=== PATIENT | female | born 1950 | race Caucasian/White ===

== ENCOUNTER → 2018-11-20 | Outpatient (CLI) | payer MEDICARE | END | disposition home or self-care (01) | LOC: RAH 10:46 | PROVIDERS: ATTEND Physical Medicine & Rehabilitation | DX: R27.8 Other lack of coordination (principal) | CPT/HCPCS: 70551 ==

== ENCOUNTER → 2019-07-19 | Outpatient (CLI) | payer MEDICARE | END | disposition home or self-care (01) | LOC: RAH 09:57 | PROVIDERS: ATTEND Physical Medicine & Rehabilitation | DX: M48.061 Spinal stenosis, lumbar region without neurogenic claudication (principal); M41.86 Other forms of scoliosis, lumbar region | CPT/HCPCS: 72148 ==

== ENCOUNTER → 2019-11-27 | Outpatient (CLI) | payer OTHER | END | disposition home or self-care (01) | LOC: RAH 13:59 | PROVIDERS: ATTEND Nurse Practitioner Adult Health | DX: Z13.6 Encounter for screening for cardiovascular disorders (principal) | CPT/HCPCS: 75571 ==

== ENCOUNTER → 2019-12-13 | Outpatient (CLI) | payer MEDICARE, OTHER | END | disposition home or self-care (01) | LOC: SHCH 15:46 | PROVIDERS: ATTEND Internal Medicine Cardiovascular Disease | DX: R00.2 Palpitations (principal) | CPT/HCPCS: 93306; 93356 ==

== ENCOUNTER → 2023-09-20 | Outpatient (CLI) | payer MEDICARE, OTHER ==
[~2023-09-20] MED LIST: AMOX-426 PO; ASPI-1197 PO; BACI1TAB24 PO; BUSP15TA3 PO; CETI10TA57 PO; FLUO20CA30 PO; LANS15TA5 PO; ONDA-104 PO; RALO60 PO; TRAZ-185 PO; ZOLE5INF IV
== END | disposition home or self-care (01) ==
LOC: RAH 13:01
PROVIDERS: ATTEND Nurse Practitioner Adult Health
DX: M81.0 Age-related osteoporosis without current pathological fracture (principal)
CPT/HCPCS: 77080

== ENCOUNTER 2024-04-17 15:19 | Emergency (ER) | payer MEDICARE, OTHER ==
[~2024-04-17] VITALS: Ht 162.6 cm; Wt 63.5 kg
[2024-04-17 16:07] LABS: BASOPHILS # (AUTO) 0.01 K/uL (0.00-0.20); BASOPHILS % (AUTO) 0.1 % (0.0-5.0); EOSINOPHILS # (AUTO) 0.01 K/uL (0.00-0.70); EOSINOPHILS % (AUTO) 0.1 % (0.0-8.0); HEMATOCRIT 38.7 % (36-48); IMMATURE GRANULOCYTE ABSOLUTE 0.02 K/uL (0-1); LYMPHOCYTES # (AUTO) 1.6 K/uL (1.0-4.8); LYMPHOCYTES % (AUTO) 18.7 % (21.0-51.0); MEAN CORPUSCULAR HEMOGLOBIN 29.5 pg (27.0-33.0); MEAN CORPUSCULAR HGB CONC 33.6 g/dL (32.0-36.0); MEAN CORPUSCULAR VOLUME 87.8 fL (79-99); MONOCYTES # (AUTO) 0.2 K/uL (0.1-1.0); MONOCYTES % (AUTO) 2.5 % (3.0-13.0); NEUTROPHILS # (AUTO) 6.8 K/uL (1.8-7.7); NEUTROPHILS % (AUTO) 78.4 % (40.0-77.0); PLATELET COUNT (AUTO) 280 K/uL (130-400); RED BLOOD CELL COUNT(AUTO) 4.41 MIL/uL (4.00-5.50); RED CELL DISTRIBUTION WIDTH 12.3 % (11.0-15.5); WHITE BLOOD COUNT (AUTO) 8.7 K/uL (4.8-10.8)
[2024-04-17 16:14] LABS: CREATININE 0.7 mg/dL (0.5-1.0); POTASSIUM 3.3 mmol/L (3.5-5.1)
[2024-04-17 16:18] LABS: ALBUMIN 3.6 g/dL (3.5-5.0); BILIRUBIN,TOTAL 0.5 mg/dL (0.2-1.0)
[2024-04-17] MEDS ORDERED: IOHEXOL-350 75 ML VIAL IV ONE (18:00)
[2024-04-17] MEDS: ONDANSETRON 4MG INJ IVP ONE (18:12)
[2024-04-17] MEDS: MORPHINE 2 MG SYG IVP ONE (18:12)
[2024-04-17] MEDS: 0.9%NACL 1000ML 1,000 ML IV ONE (18:12)
[2024-04-17 19:32] LABS: APPEARANCE,URINE CLEAR (CLEAR); BILIRUBIN,URINE NEGATIVE (NEGATIVE); COLOR,URINE LIGHT-YELLOW (YELLOW); GLUCOSE, URINE (UA) NEGATIVE (NEGATIVE); KETONES,URINE NEGATIVE (NEGATIVE); LEUKOCYTE ESTERASE ,URINE NEGATIVE Leu/uL (NEGATIVE); NITRATE,URINE NEGATIVE (NEGATIVE); OCCULT BLOOD,URINE NEGATIVE (NEGATIVE); PH,URINE 8.5 (5.0-8.0); PROTEIN,URINE NEGATIVE (NEGATIVE); UROBILINOGEN,URINE 0.2 mg/dL (0.2-1.0)
[2024-04-17] MEDS: POTASSIUM BICARB/CIT AC 25 MEQ TABLET.EFF PO ONE (19:40)
[2024-04-17 19:48] VITALS: BP 124/61; PULSE 75; RESP 18; O2SAT 99
[2024-04-17] MEDS ORDERED: ONDA-243 PO (19:50)
[2024-04-17] MEDS ORDERED: DICY20TA2 PO (19:50)
[2024-04-17 19:54] LABS: ADD UA MICROSCOPIC YES
[2024-04-17 19:56] LABS: WBC,URINE 0-1 /HPF (0-1)
== END 2024-04-17 20:45 | disposition home or self-care (01) ==
LOC: EDH 15:19
DX: A08.4 Viral intestinal infection, unspecified (principal); R19.7 Diarrhea, unspecified; R10.9 Unspecified abdominal pain; R42 Dizziness and giddiness; E86.0 Dehydration; Z90.710 Acquired absence of both cervix and uterus
CPT/HCPCS: 99285; 74177; 96374; 96361; 96375; 84484; 80053; 83690 ×2; 85025; 81001; 36415; 93005; J2270; J7030; J2405; Q9967

== ENCOUNTER → 2025-03-20 | Outpatient (CLI) | payer MEDICARE, OTHER ==
[~2025-03-20] MED LIST changes: +DICY20TA2 PO; +ONDA-243 PO
--- NOTE | 2025-03-20 16:58 | HMCIMG ---
Lumbar spine 2 views Comparison Study: none History: Low back pain, unspecified Findings: Exam of the lumbosacral spine demonstrates no evidence of fracture or subluxation. There are moderate spondylitic changes. The facet joints show moderate degenerative changes. There is levoscoliosis of the lumbar spine. The disc spaces are intact. Bone mineralization is normal. Impression: Spondylitic changes and degenerative changes of the apophyseal joints as noted.
== END | disposition home or self-care (01) ==
LOC: RAH 15:08
PROVIDERS: ATTEND Nurse Practitioner Adult Health
DX: M47.816 Spondylosis without myelopathy or radiculopathy, lumbar region (principal); M41.86 Other forms of scoliosis, lumbar region; M54.50 Low back pain, unspecified
CPT/HCPCS: 72100

== ENCOUNTER 2025-09-24 15:55 | Emergency (ER) | payer MEDICARE, OTHER ==
[~2025-09-24] VITALS: Ht 162.6 cm; Wt 65.8 kg
[~2025-09-24 15:55] MED LIST changes: -FLUO20CA30 PO; +FLUO20CA95 PO
--- NOTE | 2025-09-24 17:36 | NUR ---
PT BEDDED IN HALLWAY B ASSUMED CARE AT THIS TIME
--- NOTE | 2025-09-24 17:40 | HMCIMG ---
STUDY CR right knee, 3 view. HISTORY Fall. TECHNIQUE Three radiographic views of the right knee. COMPARISON None provided. FINDINGS BONES No acute fracture or aggressive osseous lesion is identified. JOINTS There is mild tricompartmental osteoarthritis of the right knee, with minimal joint space narrowing and small marginal osteophytes. No sizable joint effusion is appreciated. SOFT TISSUES The periarticular soft tissues are unremarkable. IMPRESSION * Mild tricompartmental osteoarthritis of the right knee. * No acute osseous abnormality. /[place]
--- NOTE | 2025-09-24 17:40 | HMCIMG ---
STUDY CT head without intravenous contrast. HISTORY Fall with laceration. TECHNIQUE Axial CT images of the head/brain were obtained without intravenous contrast. COMPARISON MR brain with and without contrast dated 11/20/2018 at 11:09. CT head without contrast dated 05/19/2015 at 08:53. FINDINGS BRAIN There is diffuse cerebral volume loss with prominence of the ventricles and cortical sulci, compatible with chronic atrophy. Chronic small vessel ischemic changes are present in the bilateral frontoparietal white matter. No acute intracranial hemorrhage, mass lesion, CT evidence of acute territorial infarct, midline shift, or extra-axial fluid collection is identified. VENTRICLES AND CSF SPACES The ventricles and basal cisterns are normal in configuration for the degree of cerebral volume loss, without hydrocephalus. ORBITS The visualized orbits are unremarkable. PARANASAL SINUSES AND MASTOIDS There is mucosal thickening with partial opacification of the right maxillary sinus, compatible with right maxillary sinusitis; no definite air-fluid level is identified on this nonsinus-dedicated head CT. The remaining paranasal sinuses and mastoid air cells are clear. BONES AND SOFT TISSUES No calvarial fracture is seen. The visualized scalp and facial soft tissues are unremarkable. IMPRESSION * Chronic diffuse cerebral volume loss with small vessel ischemic changes in the bilateral frontoparietal white matter; no acute intracranial abnormality. * Right maxillary sinusitis without a clearly visualized air-fluid level on this nonsinus-dedicated examination. /[place]
--- NOTE | 2025-09-24 17:40 | HMCIMG ---
STUDY CR right hand, 3 view. HISTORY Fall. TECHNIQUE Three radiographic views of the right hand. COMPARISON None provided. FINDINGS BONES There is an acute oblique displaced fracture involving the neck and head of the fifth metacarpal with cortical disruption and mild angulation. There is diffuse osteopenia involving the distal radius, ulna, carpal bones, metacarpals, and phalanges. An old malunited fracture deformity of the distal radius is present, along with an old fracture of the ulnar styloid process. No additional acute fracture or aggressive osseous lesion is identified. JOINTS No giovanna dislocation is seen. The visualized joint spaces are preserved for age. SOFT TISSUES There is adjacent soft tissue swelling/contusion around the fifth metacarpal region. No radiopaque foreign body is identified. IMPRESSION * Acute oblique displaced fracture of the head and neck of the right fifth metacarpal with adjacent soft tissue contusion. * Diffuse osteopenia with old malunited distal radius fracture and old ulnar styloid fracture. /[place]
--- NOTE | 2025-09-24 17:52 | ERN ---
ED Note History of Present Illness Stated Complaint: FALL Chief Complaint: Mechanical Fall Time Seen by MD: 15:58 Time Seen by Midlevel: 16:00 Dictation: 75-year-old female coming in status post ground level fall. Patient states he fell on cement states she hit her head, no blood thinners. Patient is complaining of right knee pain, right hand pain along the 5th digit and a la ceration to the right eyebrow. No other complaints this time. Denies any blurry vision, nausea, vomiting, dizziness. Denies any chest pain or chest discomfort. Patient states she is able to bear weight on the right knee. States she is up-to-date with her tetanus in 2021. Allergies: Coded Allergies: Sulfa (Sulfonamide Antibiotics) (Unverified Allergy, Severe, ANAPHYLAXAS, 11/15/13) prochlorperazine (Unverified Allergy, Severe, AKASTHESIA, 11/15/13) Home Meds Active Scripts Dicyclomine HCl (Bentyl) 20 Mg Tab, 20 MG PO Q6HPRN PRN for ABDOMINAL CRAMPS, #30 TAB Prov:[facility]IB [facility] 04/17/24 Ondansetron (Ondansetron Odt) 4 Mg Tab.rapdis, 4 MG PO Q6HPRN for NAUSEA/VOMITING, #15 TAB Prov:SAQIB [facility] 04/17/24 Bacillus Coagulans (Probiotic) 1 Billion Cell Tab.chew, 1 EACH PO DAILY, #30 TAB.CHEW 0 [facility]23 Ondansetron HCl (Ondansetron HCl) 4 Mg Tablet, 4 MG PO Q6HPRN PRN for NAUSEA/VOMITING, #15 TAB 0 Refills Prov:LAURI FINN 08/25/23 Amoxicillin/Potassium Clav (Augmentin 500-125 Tablet) 500 Mg-125 Mg Tablet, 1 EACH PO BID, #28 TAB 0 Refills Prov:LAURI FINNMesfin 08/25/23 Reported Medications Buspirone HCl (Buspirone HCl) 15 Mg Tablet, 15 MG PO HS, TAB 08/21/23 Trazodone HCl (Trazodone HCl) 50 Mg Tablet, 50 MG PO HS, TAB 08/21/23 Cetirizine HCl (Cetirizine HCl) 10 Mg Tablet, 10 MG PO HS, TAB 08/21/23 Zoledronic Acid/Mannitol&Water (Reclast 5 mg/100 ml Solution) 5 Mg/100 Ml Infus..btl, 5 MG IV AD, INFUS.BOT 08/21/23 Raloxifene HCl (Evista) 60 Mg Tablet, 60 MG PO DAILY, TAB 08/21/23 Aspirin (Aspirin) 81 Mg Tab.chew, 81 MG PO QODAY, TAB.CHEW 08/21/23 Fluoxetine HCl (Prozac) 20 Mg Cap, 20 MG PO BID, CAP 08/21/23 Lansoprazole (Prevacid) 15 Mg Tab.rap.dr, 15 MG PO QODAY 08/21/23 Past Medical History Past Medical History: Arrythmia Additional Past Medical Hx: SKIN CANCER, DUODUNAL ULCER Surgical History: Hysterectomy, Other Surgical History Other: GASTRIC BYPASS, History: Not Applicable Review of System Dictation Constitutional: Negative for fever,chills, and weight loss Eyes: Negative for injury, pain,redness, and discharge, laceration to the right eyebrow ENT: Negative for injury,pain or swelling Cardiovascular: Negative for chest pain, palpitations, and edema Respiratory: Negative for shortness of breath, cough, and wheezing, Abdomen/GI: Negative for abdominal pain, nausea, vomiting, diarrhea, and constipation Back: Negative for injury and pain : Negative for injury, bleeding and discharge MS/Extremity: Negative for injury and deformity, complaining of right knee pain and right hand pain Skin: Negative for rash, and discoloration Neuro: Negative for headache, weakness, numbness, tingling, and seizure Psych: Negative for suicide ideation, homicidal ideation, and hallucinations Review of Systems: was completed Initial Vital Sign VS Vital Signs Date Time Temp Pulse Resp B/P (MAP) Pulse Ox O2 Delivery O2 Flow Rate FiO2 09/24/25 15:57 97.7 119 20 119/70 99 Room Air 0 Physical Exam Dictation General: awake, alert, NAD Head/Face: Normocephalic, atraumatic Eyes: PERRL, EOMI, vision at baseline ENT: oral cavity clear, TMs clear, no signs of infection Neck: Trachea midline, supple, no nuchal rigidity Cardiovascular: RRR, normal S1/S2, No MRGs, no JVD Respiratory: CTAB, no respiratory distress, No rales or wheezes Abdomen: Soft, non-tender, non-distended, normal bowel sounds, no guarding or rebound. Skin: Warm, dry, normal turgor, no rash, one inch laceration to the influenza, head area, MS/Extremity: Pulses equal, no cyanosis, neurovascular intact, FROM Neuro: COAx4, GCS 15, strength 5/5, CN 2-12 intact, normal cerebellar exam, normal gait, Psych: Normal behavior, mood, and affect normal Results (Laboratory/Radiology) X-RAY Comment: [address] [address] IMAGING REPORT Signed PATIENT: RODDY DOE MR#: [id number] : 1950 SEX: F AGE: 75 LOCATION: [facility] ORDER 160 STATUS: REG ER [facility] REPORT#: [id number] SERVICE [id number] REASON: fall ORDERING PHYSICIAN: GREGORIO NEELY CNP PROCEDURE: HAND 3V RT - HAND 3+VWS RT STUDY CR right hand, 3 view. HISTORY Fall. TECHNIQUE Three radiographic views of the right hand. COMPARISON None provided. FINDINGS BONES There is an acute oblique displaced fracture involving the neck and head of the fifth metacarpal with cortical disruption and mild angulation. There is diffuse osteopenia involving the distal radius, ulna, carpal bones, metacarpals, and phalanges. An old malunited fracture deformity of the distal radius is present, along with an old fracture of the ulnar styloid process. No additional acute fracture or aggressive osseous lesion is identified. JOINTS No giovanna dislocation is seen. The visualized joint spaces are preserved for age. SOFT TISSUES There is adjacent soft tissue swelling/contusion around the fifth metacarpal region. No radiopaque foreign body is identified. IMPRESSION * Acute oblique displaced fracture of the head and neck of the right fifth metacarpal with adjacent soft tissue contusion. * Diffuse osteopenia with old malunited distal radius fracture and old ulnar styloid fracture. /[place] DICTATED BY: YUNIOR JUÁREZ Jr., MD DATE: 09/24/251838 ELECTRONICALLY SIGNED BY: YUNIOR JUÁREZ Jr., MD DATE: 09/24/251838 [address] [id number] IMAGING REPORT Signed PATIENT: RODDY DOE MR#: [id number] : 1950 SEX: F AGE: 75 LOCATION: ED ORDER 160 STATUS: REG ER [facility] REPORT#: [id number] SERVICE 160 REASON: fall ORDERING PHYSICIAN: GREGORIO NEELY CNP PROCEDURE: KNEE 3V RT - KNEE 3VWS RT STUDY CR right knee, 3 view. HISTORY Fall. TECHNIQUE Three radiographic views of the right knee. COMPARISON None provided. FINDINGS BONES No acute fracture or aggressive osseous lesion is identified. JOINTS There is mild tricompartmental osteoarthritis of the right knee, with minimal joint space narrowing and small marginal osteophytes. No sizable joint effusion is appreciated. SOFT TISSUES The periarticular soft tissues are unremarkable. IMPRESSION * Mild tricompartmental osteoarthritis of the right knee. * No acute osseous abnormality. /[place] DICTATED BY: YUNIOR JUÁREZ Jr., MD DATE: 09/24/251838 ELECTRONICALLY SIGNED BY: YUNIOR JUÁREZ Jr., MD DATE: 09/24/251838 CT Scan Comment: [address] [id number] IMAGING REPORT Signed PATIENT: RODDY DOE MR#: [id number] : 1950 SEX: F AGE: 75 LOCATION: ED ORDER 160 STATUS: REG ER REPORT#: [id number] SERVICE 160 REASON: fall, laceration ORDERING PHYSICIAN: GREGORIO NEELY [facility] WELDER APPRENTICE PROCEDURE: HEAD WO - CT HEAD/BRAIN W/O CONTRAST STUDY CT head without intravenous contrast. HISTORY Fall with laceration. TECHNIQUE Axial CT images of the head/brain were obtained without intravenous contrast. COMPARISON MR brain with and without contrast dated 11/20/2018 at 11:09. CT head without contrast dated 05/19/2015 at 08:53. FINDINGS BRAIN There is diffuse cerebral volume loss with prominence of the ventricles and cortical sulci, compatible with chronic atrophy. Chronic small vessel ischemic changes are present in the bilateral frontoparietal white matter. No acute intracranial hemorrhage, mass lesion, CT evidence of acute territorial infarct, midline shift, or extra-axial fluid collection is identified. VENTRICLES AND CSF SPACES The ventricles and basal cisterns are normal in configuration for the degree of cerebral volume loss, without hydrocephalus. ORBITS The visualized orbits are unremarkable. PARANASAL SINUSES AND MASTOIDS There is mucosal thickening with partial opacification of the right maxillary sinus, compatible with right maxillary sinusitis; no definite air-fluid level is identified on this non?sinus-dedicated head CT. The remaining paranasal sinuses and mastoid air cells are clear. BONES AND SOFT TISSUES No calvarial fracture is seen. The visualized scalp and facial soft tissues are unremarkable. IMPRESSION * Chronic diffuse cerebral volume loss with small vessel ischemic changes in the bilateral frontoparietal white matter; no acute intracranial abnormality. * Right maxillary sinusitis without a clearly visualized air-fluid level on this non?sinus-dedicated examination. /[place] DICTATED BY: YUNIOR JUÁREZ Jr., MD DATE: 09/24/251838 ELECTRONICALLY SIGNED BY: YUNIOR JUÁREZ Jr., MD DATE: 09/24/251838 ED Course ED Course Orders Procedure Category Date Status Time Ct Head/Brain W/O CT 09/24/25 Resulted Contrast 16:05 Knee 3vws Rt RAD 09/24/25 Resulted 16:05 Hand 3+Vws Rt RAD 09/24/25 Resulted 16:05 Dermabond (Dermabond) PHA 09/24/25 Complete 17:24 Current Medications Medications (Trade) Dose Ordered Sig/Poly Route PRN Reason Start Time Stop Time Status Last Admin Dose Admin Octyl Cyanoacrylate (Dermabond) 1 each STK-MED ONCE TP 09/24/25 17:24 09/24/25 17:24 DC Vital Signs Date Time Temp Pulse Resp B/P (MAP) Pulse Ox O2 Delivery O2 Flow Rate FiO2 09/24/25 15:57 97.7 119 20 119/70 99 Room Air 0 Medical Decision Making MDM MDM: 75-year-old female presents after a mechanical ground level fall and what she tripped on cement and struck her head on the ground. Patient denies loss of consciousness, dizziness, syncope or prodrome of symptoms. She is not on any anticoagulation. On arrival patient was alert and oriented with no focal neurological deficits in the moving all extremities without difficulty. Physical exam notable for right facial abrasion and a right eyebrow laceration there are no bony tenderness to the orbital rim no step-offs, no pain with extraocular movements and no evidence of entrapment. Laceration was repaired using Dermabond with a good approximation and hemostasis. Given age a head strike a CT scan of the head was obtained which showed no acute intracranial hemorrhage, fracture, or mass effect. X-ray of the right knee was obtained due to phlegm mechanism and was negative for any acute fracture and dislocation. X-ray of the right hand demonstrates an acute fracture of the hit him with a right metacarpals with the findings consistent with a an old healed distal radial fracture. There is low concern for intracranial injury given normal head scan, absence of any anticoagulation use, normal neurological exam, stable clinical status. No evidence of little bit fracture, globe injury or cervical spine injury. States is stable and outpatient management. Differential diagnosis: Intracranial hemorrhage, subdural hematoma, eyebrow laceration, fracture Rationale: Tests considered and ordered secondary to shared decision making include: Previous outside records reviewed: Old ER visits. Risk of complication and/or morbidity or mortality of patient management: None Medications-Per medication reconciliation Need for hospitalization: Patient does not meet criteria for hospitalization. Need for emergency major/minor surgery: No There are no social concerns with this patient. Prescription drug management Prescriptions will include symptomatic care Patient's prior external medical records from other ER visits were reviewed by me as indicated. Prior testing and results from previous visits were reviewed. Prior tests were taken into account with medical decision making and resource utilization, independent historian/historians were used to obtain complete medical history. I independently interpreted the test that were performed, results were reviewed by me and considered findings on radiology if ordered. Medical management and examination interpretation discussions were had by me with other qualified healthcare professionals as indicated for the patient's care. Procedure Wound Location: head Wound's Depth, Shape: superficial Wound Explored: clean Wound Repaired With: Dermabond DX & DISP Disposition: Discharge Departure Impression: Primary Impression: Fracture of metacarpal Additional Impressions: Eyebrow laceration, Head contusion, Ground-level fall Condition: Stable Additional Instructions: Keep Your abrasion and laceration clean and dry. Follow up with the orthopedic for your 5th metacarpal fracture. Follow up with your primary doctor in 1-2 days. If you develop any severe headache with nausea and vomiting, dizziness, blurry vision, unsteady gait please return to the hospital. Referrals: ELENI MARTINI NP (PCP) SANNA SIM DO Time of Disposition: 17:51 GREGORIO NEELY [facility] Sep 24, 2025 17:52
[2025-09-24 18:01] VITALS: BP 115/73; PULSE 88; RESP 16; TEMP 97.9; O2SAT 99
[2025-09-24] MEDS: OCTYL 2-CYANOACRYLATE 1 EACH TP ONE (18:01)
== END 2025-09-24 18:39 | disposition home or self-care (01) ==
LOC: EDH 15:55
DX: S62.336A Displaced fracture of neck of fifth metacarpal bone, right hand, initial encounter for closed fracture (principal); S01.111A Laceration without foreign body of right eyelid and periocular area, initial encounter; M25.561 Pain in right knee; Z88.2 Allergy status to sulfonamides; Z98.84 Bariatric surgery status; Z88.8 Allergy status to other drugs, medicaments and biological substances; Z79.899 Other long term (current) drug therapy; Z90.710 Acquired absence of both cervix and uterus; Z79.810 Long term (current) use of selective estrogen receptor modulators (SERMs); Z85.828 Personal history of other malignant neoplasm of skin; W01.0XXA Fall on same level from slipping, tripping and stumbling without subsequent striking against object, initial encounter; Y93.89 Activity, other specified; Y92.89 Other specified places as the place of occurrence of the external cause; Y99.8 Other external cause status
CPT/HCPCS: 12011; 29105; 29125; 70450; 73130; 73562; 99283; 99284